=== PATIENT | female | born 1970 | race Caucasian/White ===

== ENCOUNTER → 2017-12-09 | Outpatient (CLI) | payer BC | END | disposition home or self-care (01) | LOC: KCIC MRI 07:37 | DX: M77.8 Other enthesopathies, not elsewhere classified (principal); M47.892 Other spondylosis, cervical region | CPT/HCPCS: 72141; 73221 ==

== ENCOUNTER → 2018-01-21 | Outpatient (CLI) | payer BC ==
--- NOTE | 2018-01-21 14:56 | KCIC ---
MRI right shoulder without contrast dated 01/21/2018 2:00 PM Indication: Pain , pain for several months .. Comparison: No comparison is available. Technique: Routine multiplanar multisequence imaging performed. . Findings: Intermediate T2 signal throughout the supraspinatus and infraspinatus portions of the rotator cuff. No full-thickness tear or cuff retraction. The subscapularis is somewhat thickened and of increased signal but otherwise intact. Mild hypertrophic change of the acromioclavicular joint. Mild undersurface spurring of the acromium. Acromium is type II morphology. Trace amount of subacromial/subdeltoid bursal fluid. Long head biceps tendon and biceps anchor are intact. Extra articular biceps tendon courses within the bicipital groove. Glenoid labrum is grossly intact. No apparent labral tear or para labral cyst. No full-thickness glenoid cartilage defect. No joint effusion or loose body. Suprascapular and spinoglenoid notches are clear. No significant muscle edema or muscle atrophy. No bone marrow edema. IMPRESSION: 1. Mild to moderate rotator cuff tendinopathy with no evidence of full-thickness tear. . 2. Mild AC joint arthropathy with undersurface spurring. There is a small subacromial/subdeltoid bursal effusion. 3. Intact biceps labral complex. Electronically signed by: Esdras Mcfadden MD (01/21/2018 2:53 PM) [id number]
== END | disposition home or self-care (01) ==
LOC: KCIC MRI 13:40
PROVIDERS: ATTEND Family Medicine
DX: M12.811 Other specific arthropathies, not elsewhere classified, right shoulder (principal); M25.411 Effusion, right shoulder
CPT/HCPCS: 73221